=== PATIENT | female | born 1965 | race Caucasian/White ===

== ENCOUNTER 2017-10-31 12:07 | Emergency (ER) | payer MEDICARE, OTHER, MEDICAID ==
[2017-10-31] MEDS: ONDANSETRON 4 MG INJ IV (13:27)
[2017-10-31] MEDS: morphine 4 MG/ML VIAL IV (13:28)
[2017-10-31] MEDS: SOD CHLORIDE 0.9% 1,000 ML IV (13:28)
[2017-10-31 13:51] LABS: ADD MAN DIFF? NO
[2017-10-31 13:56] LABS: WHITE BLOOD COUNT 6.1 10^3/ul (4.8-10.8)
[2017-10-31 13:56] LABS: BASOPHILS % 0.5 % (0.0-2.0); EOSINOPHILS # 0.1 10^3/ul (0.0-0.5); EOSINOPHILS % 1.3 % (0.0-7.0); HEMATOCRIT 39.7 % (37.0-47.0); HEMOGLOBIN 13.5 g/dl (12.0-16.0); LYMPHOCYTES % 33.2 % (15.0-51.0); MEAN CORPUSCULAR HEMOGLOBIN 31.4 pg (29.0-33.0); MEAN CORPUSCULAR VOLUME 92.3 fl (82.0-101.0); MONOCYTE # 0.5 10^3/ul (0.3-0.9); MONOCYTES % 8.5 % (0.0-11.0); NEUTROPHIL # 3.5 10^3/ul (1.6-7.5); NEUTROPHILS % 56.2 % (39.0-77.0); PLATELET COUNT 260 10^3/UL (140-415); RED CELL DISTRIBUTION WIDTH 14.1 % (11.5-14.5)
[2017-10-31 14:19] LABS: ALANINE AMINOTRANSFERASE 29 IU/L (13-69); ALBUMIN 4.7 g/dl (3.3-4.9); ALBUMIN/GLOBULIN RATIO 1.42; ALKALINE PHOSPHATASE 86 IU/L (42-121); ANION GAP 17 (8-16); ASPARTATE AMINO TRANSFERASE 27 IU/L (15-46); BLOOD UREA NITROGEN 12 mg/dl (7-20); CALCIUM 9.8 mg/dl (8.4-10.2); CARBON DIOXIDE 28 mmol/L (21-31); CHLORIDE 104 mmol/L (97-110); CREATININE 0.81 mg/dl (0.44-1.00); GLUCOSE 90 mg/dl (70-220); POTASSIUM 3.9 mmol/L (3.5-5.1); SODIUM 145 mmol/L (135-144)
[2017-10-31 14:34] LABS: TROPONIN-I < 0.012 ng/ml (0.00-0.12)
[2017-10-31] MEDS: ASPIRIN 81 MG TAB PO (15:44)
[2017-10-31] MEDS: KETOROLAC 30 MG INJ IV (15:45)
[2017-10-31 17:00] LABS: ADD UMIC NO; UR ASCORBIC ACID NEGATIVE (NEGATIVE); UR BILIRUBIN (Dip) NEGATIVE (NEGATIVE); UR BLOOD (Dip) NEGATIVE (NEGATIVE); UR CLARITY CLEAR (CLEAR); UR COLOR YELLOW (YELLOW); UR GLUCOSE (Dip) NEGATIVE (NEGATIVE); UR KETONES (Dip) NEGATIVE (NEGATIVE); UR LEUKOCYTE ESTERASE (Dip) NEGATIVE Leu/ul (NEGATIVE); UR NITRITE (Dip) NEGATIVE (NEGATIVE); UR SPECIFIC GRAVITY (Dip) 1.005 (1.003-1.030); UR TOTAL PROTEIN (Dip) NEGATIVE (NEGATIVE); UR UROBILINOGEN (Dip) NEGATIVE (NEGATIVE)
== END 2017-10-31 18:36 | disposition home or self-care (01) ==
LOC: FTE 12:07
DX: R51 Headache (principal); R53.1 Weakness; G89.29 Other chronic pain; Z79.82 Long term (current) use of aspirin
CPT/HCPCS: 36415; 70450; 71045; 80053; 81003; 84484; 85025; 96374; 96375; 99285-25

== ENCOUNTER 2018-07-21 15:03 | Day surgery (SDC) | payer MEDICARE, OTHER ==
[~2018-07-21 15:03] MED LIST: CEFAZOLIN 2 GM/50 ML (PMX) 50 ML (FOR WT < 120 KG) IVPB; LACTATED RINGER'S 1,000 ML IV; SEVOFLURANE 15 MIN; SOD CHLORIDE 0.9% 1,000 ML IV
[2018-07-21] MEDS ORDERED: PROPOFOL 20 ML (17:45)
[2018-07-21] MEDS ORDERED: ONDANSETRON 4 MG INJ (17:45)
[2018-07-21] MEDS ORDERED: LIDOCAINE 2% (SDV) 5 ML INJ (17:45)
[2018-07-21] MEDS ORDERED: METOCLOPRAMIDE 10 MG INJ (17:45)
[2018-07-21] MEDS ORDERED: CEFAZOLIN 1 GM INJ (17:45)
[2018-07-21] MEDS: BUPIVACAINE 0.5% (SDV) 30 ML INJ (18:07)
[2018-07-21] MEDS: TRIAMCINOLONE ACET 40 MG/ML INJ (18:08)
[2018-07-21] MEDS: FENTAnyl 50 MCG/ML VIAL IV ×3 (18:59→19:17)
[2018-07-21] MEDS ORDERED: ONDANSETRON 4 MG INJ IV (19:00)
[2018-07-21] MEDS ORDERED: FENTAnyl 50 MCG/ML VIAL IV ×2 (19:00)
[2018-07-21] MEDS ORDERED: MEPERIDINE 25 MG INJ IV (19:00)
[2018-07-21] MEDS ORDERED: MIDAZOLAM 1 MG/ML 2 ML INJ IV (19:00)
[2018-07-21] MEDS ORDERED: METOCLOPRAMIDE 10 MG INJ IV (19:00)
[2018-07-21] MEDS ORDERED: DIPHENHYDRAMINE 50 MG INJ IV (19:00)
[2018-07-21] MEDS ORDERED: OXYCODONE/ACETAMINOPHEN (5/325) TAB PO (19:00)
[2018-07-21] MEDS: OXYCODONE/ACETAMINOPHEN (5/325) TAB PO (19:44)
== END 2018-07-21 20:09 | disposition home or self-care (01) ==
LOC: SDS 15:03
DX: G57.61 Lesion of plantar nerve, right lower limb (principal)
CPT/HCPCS: 28080; 88304

== ENCOUNTER 2018-10-04 09:37 | Emergency (ER) | payer MEDICARE, OTHER ==
[2018-10-04] MEDS: morphine 4 MG/ML VIAL IV (11:26)
[2018-10-04] MEDS: SOD CHLORIDE 0.9% 1,000 ML IV (11:26)
[2018-10-04] MEDS: ONDANSETRON 4 MG INJ IV (11:31)
[2018-10-04 11:33] LABS: ADD MAN DIFF? NO
[2018-10-04 11:36] LABS: BASOPHILS % 0.5 % (0.0-2.0); EOSINOPHILS % 0.4 % (0.0-7.0); HEMATOCRIT 39.1 % (37.0-47.0); LYMPHOCYTES # 1.4 10^3/ul (0.8-2.9); LYMPHOCYTES % 17.3 % (15.0-51.0); MEAN CORPUSCULAR HEMOGLOBIN 31.4 pg (29.0-33.0); MEAN CORPUSCULAR HGB CONC 33.2 g/dl (32.0-37.0); MEAN CORPUSCULAR VOLUME 94.4 fl (82.0-101.0); MEAN PLATELET VOLUME 9.5 fl (7.4-10.4); MONOCYTE # 0.4 10^3/ul (0.3-0.9); MONOCYTES % 4.7 % (0.0-11.0); NEUTROPHIL # 6.1 10^3/ul (1.6-7.5); NEUTROPHILS % 76.7 % (39.0-77.0); PLATELET COUNT 246 10^3/UL (140-415); RED BLOOD COUNT 4.14 10^6/ul (4.20-5.40); RED CELL DISTRIBUTION WIDTH 13.2 % (11.5-14.5)
[2018-10-04 11:36] LABS: WHITE BLOOD COUNT 7.9 10^3/ul (4.8-10.8)
[2018-10-04 11:53] LABS: ANION GAP 10 (5-13); BLOOD UREA NITROGEN 12 mg/dl (7-20); CALCIUM 9.3 mg/dl (8.4-10.2); CARBON DIOXIDE 27 mmol/L (21-31); CHLORIDE 103 mmol/L (97-110); CREATININE 0.61 mg/dl (0.44-1.00); Estimated GFR > 60 mL/min (>60); GLUCOSE 94 mg/dl (70-220); SODIUM 140 mmol/L (135-144)
[2018-10-04 11:57] LABS: INR 0.94; PROTIME 12.7 Sec (11.9-14.9)
[2018-10-04 11:58] LABS: PARTIAL THROMBOPLASTIN TIME 29.5 Sec (23.0-35.0)
[2018-10-04 12:05] LABS: TROPONIN-I < 0.012 ng/ml (0.000-0.120)
[2018-10-04] MEDS: KETOROLAC 30 MG INJ IV (12:36)
[2018-10-04] MEDS: METOCLOPRAMIDE 10 MG INJ IV (12:37)
[2018-10-04] MEDS: DIPHENHYDRAMINE 50 MG INJ IV (12:37)
[2018-10-04 13:00] LABS: ADD UMIC NO; UR ASCORBIC ACID 40 mg/dL (NEGATIVE); UR BILIRUBIN (Dip) NEGATIVE (NEGATIVE); UR BLOOD (Dip) NEGATIVE (NEGATIVE); UR CLARITY CLEAR (CLEAR); UR COLOR YELLOW (YELLOW); UR GLUCOSE (Dip) NEGATIVE (NEGATIVE); UR KETONES (Dip) NEGATIVE (NEGATIVE); UR LEUKOCYTE ESTERASE (Dip) NEGATIVE Leu/ul (NEGATIVE); UR NITRITE (Dip) NEGATIVE (NEGATIVE); UR SPECIFIC GRAVITY (Dip) 1.018 (1.003-1.030); UR TOTAL PROTEIN (Dip) NEGATIVE (NEGATIVE); UR UROBILINOGEN (Dip) NEGATIVE (NEGATIVE)
== END 2018-10-04 13:15 | disposition home or self-care (01) ==
LOC: FTE 09:37
DX: R51 Headache (principal); R40.2142 Coma scale, eyes open, spontaneous, at arrival to emergency department; R40.2362 Coma scale, best motor response, obeys commands, at arrival to emergency department; R40.2252 Coma scale, best verbal response, oriented, at arrival to emergency department; R42 Dizziness and giddiness; Z79.82 Long term (current) use of aspirin
CPT/HCPCS: 36415; 70450; 80048; 81003; 81025; 84484; 85025; 85610; 85730; 93005; 96361; 96374; 96375; 99285-25